=== PATIENT | female | born 1980 | race Caucasian/White ===

== ENCOUNTER 2018-02-07 10:52 | Emergency (ER) | payer BC ==
[2018-02-07 11:01] VITALS: BP 113/68
--- NOTE | 2018-02-07 12:23 | ER Document Report ---
HPI - HPI Patient complains to provider of: cough, right anterior lateral chest pain Onset: Other - cough for 2 weeks Pain Level: 4 Context: 37-year-old non-smoker female complaining of coughing for 2 weeks. She coughs so much that she now has pain in the right lower chest wall. Hurts when she moves. No fever or chills. No history of asthma. Associated Symptoms: None Exacerbated by: Movement, Coughing Relieved by: Denies Similar symptoms previously: No Recently seen / treated by doctor: No - ROS ROS below otherwise negative: Yes Systems Reviewed and Negative: Yes All other systems reviewed and negative Past Medical History - General Information source: Patient - Social History Smoking Status: Never Smoker Lives with: Family Family History: Reviewed & Not Pertinent Surgical Hx: Negative Vertical Provider Document - CONSTITUTIONAL Agree With Documented VS: Yes Exam Limitations: No Limitations - INFECTION CONTROL TRAVEL OUTSIDE OF THE [place] IN LAST 30 DAYS: No - NECK Neck: Supple - RESPIRATORY Respiratory: Breath Sounds Normal, No Respiratory Distress. negative: Chest Non -Tender Notes: Tender right anterior lateral chest wall, no rash - CARDIOVASCULAR Cardiovascular: Regular Rate, Regular Rhythm - GI/ABDOMEN Gastrointestinal: Abdomen Soft, Abdomen Non-Tender, No Organomegaly, Normal Bowel Sounds - MUSCULOSKELETAL/EXTREMETIES Musculoskeletal/Extremeties: MAEW - NEURO Level of Consciousness: Awake, Alert - DERM Integumentary: No Rash Course - Re-evaluation Re-evalutation: 02/07/18 12:40 Chest x-ray is negative per radiologist - Vital Signs Vital signs: Temp Pulse Resp BP Pulse Ox 97.8 F 56 L 22 H 113/68 100 02/07/18 10:59 02/07/18 10:59 02/07/18 10:59 02/07/18 10:59 02/07/18 10:59 Discharge - Discharge Clinical Impression: right lower chest wall pain Acute bronchitis Qualifiers: Bronchitis organism: unspecified organism Qualified Code(s): J20.9 - Acute bronchitis, unspecified Condition: Good Disposition: HOME, SELF-CARE Instructions: Acetaminophen, Azithromycin ([facility]), Bronchitis ([facility]), Chest Wall Pain ([facility]), Ibuprofen (General) ([facility]) Additional Instructions: warm compress Tylenol up to 4000 mg a day for pain Motrin 600 mg 3 times a day for inflammation A azithromycin since she had a cough with this bronchitis for 2 weeks Return to the emergency room for any worsening symptoms Prescriptions: Ibuprofen [Motrin 600 mg Tablet] 600 mg PO Q8HP PRN #30 tablet PRN Reason: Azithromycin [Zithromax] 250 mg PO DAILY #6 tablet Forms: Return to Work Referrals: JENNIFER PICKERING MD [Primary Care Provider] - Follow up as needed
--- NOTE | 2018-02-07 12:25 | RADIOLOGY REPORT (SQ) ---
EXAM DESCRIPTION: CHEST 2 VIEWS COMPLETED DATE/TIME: 02/07/2018 12:15 pm REASON FOR STUDY: cougghm right lower lateral chest pain COMPARISON: None. EXAM PARAMETERS: NUMBER OF VIEWS: two views TECHNIQUE: Digital Frontal and Lateral radiographic views of the chest acquired. RADIATION DOSE: NA LIMITATIONS: none FINDINGS: LUNGS AND PLEURA: No opacities, masses or pneumothorax. No pleural effusion. MEDIASTINUM AND HILAR STRUCTURES: No masses or contour abnormalities. HEART AND VASCULAR STRUCTURES: Heart normal size. No evidence for failure. BONES: No acute findings. HARDWARE: None in the chest. OTHER: No other significant finding. IMPRESSION: NO ACUTE RADIOGRAPHIC FINDING IN THE CHEST. TECHNICAL DOCUMENTATION: JOB ID: [id number] [employer]- All Rights Reserved Reading location - IP/workstation name: [email or web address]
[2018-02-07] MEDS ORDERED: IBUPROFEN 600 MG TABLET PO ONE (12:33)
[2018-02-07] MEDS ORDERED: ACETAMINOPHEN 325 MG TABLET PO ONE (12:33)
== END 2018-02-07 12:56 | disposition home or self-care (01) ==
LOC: ER 10:52
DX: J20.9 Acute bronchitis, unspecified (principal); R05 Cough; R07.89 Other chest pain
CPT/HCPCS: 71046; 99283